=== PATIENT | female | born 1950 | race Caucasian/White ===

== ENCOUNTER → 2016-09-12 | Outpatient (CLI) | payer MEDICARE, BC ==
--- NOTE | ~2016-09-12 | CT4 ---
[facility] A Service of [facility] & [facility] RADIOLOGY TEXT RESULTS PATIENT: GEORGE TORREZ LOCATION: CCAT : 48 UNIT #: [id number] AGE: [address]: Chava Funez MD SEX: F ORDER DR: [id number] [facility] [address] [place], [place] [address] [id number] O MR#: [id number] Acc #: [id number] NAME: GEORGE TORREZ : 1950 SEX: F STUDY DATE/TIME: 09/12/2016 16:55 UNIT: [facility] ROOM: STUDY DESCRIPTION: CT Abd and Pelv Wo Cont Attending Physician: Chava Funez M.D. Referring Physician: Chava Funez M.D. Ordering Physician: Chava Funez M.D. Primary Care Physician: Cinthya Butterfield M.D. MEDICAL IMAGING REPORT This report is preliminary unless electronic signature is present EXAM CT abdomen and pelvis 09/12/2016. HISTORY Status post colonoscopy, EGD today. Left side abdomen pain after scope. Prior history of leukemia being treated with chemotherapy currently. Hysterectomy. TECHNIQUE This CT exam was performed with one or more of the following radiation dose reduction techniques: automatic exposure control, adjustment of mA and/or kV according to patient size, and iterative reconstruction. CT of the abdomen and pelvis was performed without administration of oral or intravascular contrast. Comparison 08/01/16. FINDINGS The lung bases are clear. Inferior heart and pericardium notable for coronary arterial calcifications. Fatty infiltration the liver. Less conspicuous on this examination than on prior contrast-enhanced study. The gallbladder is normal in volume. Uncomplicated cholelithiasis. Spleen, pancreas, adrenal glands, kidneys unremarkable. No hydronephrosis or nephrolithiasis. No ureteral dilatation or calculi suggested. Calcification in the deep right hemipelvis is outside the distal right ureter and is felt to be a phlebolith. CT Pelvis: Extensive streak artifact from left hip arthroplasty and prior right femoral open reduction internal fixation. The urinary bladder is unremarkable. The patient is status post hysterectomy. No suspicious adnexal structures. No fluid collections in the pelvis. No pelvic or retroperitoneal adenopathy. No free air. Distal esophagus, stomach, STS. [facility] A Service of [facility] & [facility] RADIOLOGY TEXT RESULTS PATIENT: GEORGE TORREZ LOCATION: CCAT : 48 UNIT #: [id number] AGE: [address]: Chava Funez MD SEX: F ORDER DR: unremarkable. Mild air distension of some small bowel loops likely reflecting the recent endoscopic procedures. No small bowel wall or fold thickening. The appendix is not visualized but there is no pericecal inflammatory change or right lower quadrant inflammatory change. There is mild air distension of some portions of the colon again felt secondary to endoscopic procedures today. There is uncomplicated distal colonic diverticulosis. No colonic inflammatory change. No pneumatosis. Atherosclerotic arterial calcifications. No aneurysm. Bony structures show no acute-appearing bony abnormality. Some mild levoscoliosis lumbar spine. No acute body wall abnormality. Umbilical hernia containing only fat without complication. Stable appearance. Incidental note is made of old healed left inferior pubic ramus fracture. IMPRESSION 1. Findings discussed with Dr. Funez at the time of this dictation. Dr. Funez indicating he would contact patient with further instructions. No clearly acute abnormalities seen on today's examination. There is no free air. No pneumatosis. Mildly air distended loops of small bowel and colon consistent with recent endoscopic procedures. No small bowel or colonic inflammatory change. No abnormal fluid collections. 2. Hepatic steatosis without focal suspicious abnormalities seen. 3. Uncomplicated cholelithiasis. 4. Pancreas and kidneys unremarkable. 5. Status post hysterectomy. 6. Status post open reduction internal fixation right femur and status post left hip arthroplasty. 7. Atherosclerotic arterial calcifications. No aortic aneurysm. Dictated by... Zachary Aaron M.D. THIS IS AN ELECTRONICALLY VERIFIED REPORT Zachary Aaron M.D. at 09/13/2016 5:13 PM Maggie TD: 09/12/2016 22:43 JOB #: [id number] MEDICAL IMAGING REPORT Page 1 of 1 COPY
[2016-09-12 16:51] LABS: POC - CREATININE 0.96 mg/dL (0.44-1.03); POC - GFR >60.0 mL/min (>60)
== END | disposition home or self-care (01) ==
LOC: CCAT 16:15
PROVIDERS: Internal Medicine Gastroenterology
DX: R10.9 Unspecified abdominal pain (principal); K76.0 Fatty (change of) liver, not elsewhere classified; K80.20 Calculus of gallbladder without cholecystitis without obstruction; I70.90 Unspecified atherosclerosis; Z90.710 Acquired absence of both cervix and uterus; Z96.642 Presence of left artificial hip joint; Z97.8 Presence of other specified devices
CPT/HCPCS: 74176; 82565